=== PATIENT | female | born 1990 | race Caucasian/White ===

== ENCOUNTER → 2016-12-04 | Outpatient (REF) | payer BC | LOC: M SFHCLERA 17:18 | PROVIDERS: ATTEND Physician Assistant | DX: E04.9 Nontoxic goiter, unspecified (principal) ==

== ENCOUNTER → 2017-08-06 | Outpatient (REF) | payer BC | LOC: M SFHCLERA 12:16 | DX: J02.9 Acute pharyngitis, unspecified (principal) ==

== ENCOUNTER → 2017-08-11 | Outpatient (REF) | payer BC ==
[2017-08-11 18:20] LABS: CHLAMYDIA DNA AMPLIFICATION NEGATIVE (NEGATIVE); GC DNA AMPLIFICATION NEGATIVE (NEGATIVE)
== END ==
LOC: M SFHCLERA 11:11
DX: Z20.9 Contact with and (suspected) exposure to unspecified communicable disease (principal)
CPT/HCPCS: 87591

== ENCOUNTER → 2017-11-30 | Outpatient (REF) | payer BC | LOC: M SFHCLERA 19:27 | DX: Z12.4 Encounter for screening for malignant neoplasm of cervix (principal) | CPT/HCPCS: G0123 ==

== ENCOUNTER → 2018-03-15 | Outpatient (REF) | payer BC | LOC: M SFHCLERA 16:17 | DX: J02.9 Acute pharyngitis, unspecified (principal) ==

== ENCOUNTER → 2021-02-20 | Outpatient (CLI) | payer OTHER ==
[2021-02-20 11:07] LABS: ALBUMIN 3.3 GM/DL (3.2-5.2); ALT/SGPT 20 U/L (12-78); BILIRUBIN,TOTAL 0.5 MG/DL (0.2-1.0); BLOOD UREA NITROGEN 10 MG/DL (7-18); CALCIUM LEVEL 8.8 MG/DL (8.5-10.1); CARBON DIOXIDE LEVEL 26 MEQ/L (21-32); CHLORIDE LEVEL 109 MEQ/L (98-107); CREATININE FOR GFR 0.81 MG/DL (0.55-1.30); GLOMERULAR FILTRATION RATE > 60.0 (>60); GLUCOSE, FASTING 92 MG/DL (70-100); POTASSIUM SERUM 3.8 MEQ/L (3.5-5.1); SODIUM LEVEL 140 MEQ/L (136-145); TOTAL PROTEIN 6.7 GM/DL (6.4-8.2)
== END ==
LOC: M WUC 08:09
PROVIDERS: ATTEND Nurse Practitioner Family
DX: R76.0 Raised antibody titer (principal); Z83.3 Family history of diabetes mellitus

== ENCOUNTER 2023-06-22 17:03 | Outpatient (CLI) | payer OTHER ==
[~2023-06-22] VITALS: Ht 162.6 cm; Wt 114.5 kg
[2023-06-22 17:23] VITALS: BP 112/56
[2023-06-22] MEDS ORDERED: PRENTAB9 PO (17:36)
[2023-06-22] MEDS ORDERED: VALT1TAB PO (17:36)
[2023-06-22] MEDS ORDERED: OMEP10CASR PO (17:36)
[2023-06-22] MEDS ORDERED: TUMS500C PO (17:36)
[2023-06-22] MEDS ORDERED: HOME MED LIST COMPLETE! XX SCH (17:40)
== END 2023-06-22 19:58 | disposition home or self-care (01) ==
LOC: M LDO 17:03
PROVIDERS: ATTEND Obstetrics & Gynecology
DX: O36.8130 Decreased fetal movements, third trimester, not applicable or unspecified (principal); Z3A.40 40 weeks gestation of pregnancy; Z88.0 Allergy status to penicillin; Z88.1 Allergy status to other antibiotic agents; Z88.2 Allergy status to sulfonamides; Z88.8 Allergy status to other drugs, medicaments and biological substances; Z79.899 Other long term (current) drug therapy

== ENCOUNTER 2023-06-25 07:53 | Inpatient (IN) | payer OTHER ==
[2023-06-25] VITALS (16 sets, daily range): BP systolic 104–148; BP diastolic 47–75
[~2023-06-25] VITALS: Ht 162.6 cm; Wt 115.7 kg
[~2023-06-25 07:53] MED LIST: OMEP10CASR PO; PRENTAB9 PO; TUMS500C PO; VALT1TAB PO
[2023-06-25] MEDS ORDERED: HOME MED LIST COMPLETE! XX SCH (08:15)
[2023-06-25] MEDS ORDERED: LIDOCAINE 1% MDV 20ML VIAL INFIL PRN (09:00)
[2023-06-25] MEDS ORDERED: OXYTOCIN DRIP 30 UNITS in IV 1 EA IV PRN ×3 (09:00)
[2023-06-25] MEDS ORDERED: CARBOPROST TROMETHAMINE 250 MCG/ML AMP IM PRN (09:00)
[2023-06-25] MEDS ORDERED: OXYTOCIN INJ 10UNITS/ML 1ML VIAL IM PRN (09:00)
[2023-06-25] MEDS ORDERED: TRANEXAMIC ACID INJection 1,000 MG in NS 100 ML IV PRN (09:00)
[2023-06-25] MEDS ORDERED: METHYLERGONOVINE MALEATE 0.2MG/ML 1ML VIAL IM PRN (09:00)
[2023-06-25 09:34] LABS: HEMATOCRIT 32.5 % (36.0-47.0); HEMOGLOBIN 10.6 g/dl (12.0-15.5); MEAN CORPUSCULAR HEMOGLOBIN 26.8 pg (27.0-33.0); MEAN CORPUSCULAR HGB CONC 32.6 g/dl (32.0-36.5); MEAN CORPUSCULAR VOLUME 82.3 fl (80.0-96.0); PLATELET COUNT, AUTOMATED 275 10^3/uL (150-450); RED BLOOD COUNT 3.95 10^6/uL (4.00-5.40); WHITE BLOOD COUNT 11.9 10^3/uL (4.0-10.0)
[2023-06-25] MEDS: VANCOMYCIN HCL 1,000 MG, VIAL MATE ADAPTER 1 EACH in D5W 250 ML IV SCH ×2 (09:48→13:01)
[2023-06-25] MEDS: LACTATED RINGER'S 1000 ML IV STA (09:48)
[2023-06-25] MEDS: valACYclovir HCL 500 MG TAB PO SCH (09:56)
[2023-06-25] MEDS: miSOPROStol 50MCG 1/2 TABLET PO SCH (13:00)
[2023-06-25] MEDS: LR 1,000 ML IV SCH (13:01)
[2023-06-25] MEDS ORDERED: VANCOMYCIN HCL 2,000 MG, VIAL MATE ADAPTER 1 EACH in NS 250 ML IV SCH (16:00)
[2023-06-25] MEDS ORDERED: diphenhydrAMINE 50MG/ML VIAL IV PRN (17:50)
[2023-06-25] MEDS ORDERED: ONDANSETRON 4MG 2ML VIAL IV PRN (17:50)
[2023-06-25] MEDS ORDERED: LR 500 ML IV PRN (17:50)
[2023-06-25] MEDS ORDERED: NALOXONE INJ 0.4MG/1ML VIAL IV PRN (17:50)
[2023-06-25] MEDS ORDERED: EPIDURAL/PCA KEYS XX PRN (17:50)
[2023-06-25] MEDS: FENTANYL/ROPIVACAINE/NACL BAG 100 ML EPIDURAL SCH (18:25)
[2023-06-25] MEDS: ePHEDrine SULFATE 25 MG/5 ML(5MG/ML) SYRINGE IVP PRN (19:32)
[2023-06-25] MEDS ORDERED: LR 1,000 ML IV SCH (21:05)
[2023-06-25] MEDS: OXYTOCIN DRIP 30 UNITS in IV 1 EA IV SCH (21:11)
[2023-06-25] MEDS: D5W/LR 500 ML IV ONE (23:55)
[2023-06-26] VITALS (8 sets, daily range): BP systolic 101–124; BP diastolic 55–73; O2SAT 96–98
[2023-06-26] MEDS: FAMOTIDINE 20MG/2ML VIAL IVP ONE (00:22)
[2023-06-26] MEDS ORDERED: MORPHINE PRES-FREE INJ 10 MG/10 ML VIAL As Ordered ONE (02:50)
[2023-06-26] MEDS ORDERED: LIDOCAINE 2% W/EPINEPHRINE 20ML VIAL **PRES FREE As Ordered ONE (02:51)
[2023-06-26] MEDS ORDERED: OXYTOCIN 30UNITS IN 0.9% NaCl 500ML IV BAG As Ordered ONE (02:51)
[2023-06-26] MEDS: CLINDAMYCIN 900 MG in IV 1 EA IV ONE (03:00)
[2023-06-26] MEDS ORDERED: ONDANSETRON 4MG 2ML VIAL As Ordered ONE (03:20)
[2023-06-26] MEDS ORDERED: METOCLOPRAMIDE INJ 10MG/2ML VIAL As Ordered ONE (03:26)
[2023-06-26] MEDS ORDERED: PHENYLephrine 500MCG 5ML (100MCG/ML) SYRINGE As Ordered ONE (03:36)
[2023-06-26] MEDS ORDERED: KETOROLAC 60MG 2ML VIAL As Ordered ONE (03:41)
[2023-06-26 03:49] LABS: CORD GAS ABE A -4.4; CORD GAS ABE V -2.8; CORD GAS HCO3 A 21.7 MMOL/L; CORD GAS HCO3 V 22.3 MMOL/L; CORD GAS O2 SAT A 28.7 %; CORD GAS O2 SAT V 64.1 %; CORD GAS PCO2 A 43.6 mmHg; CORD GAS PCO2 V 39.9 mmHg; CORD GAS PH A 7.315 UNITS; CORD GAS PH V 7.365 UNITS; CORD GAS PO2 A 14.6 mmHg; CORD GAS PO2 V 25.8 mmHg; CORD GAS SBC A 19.3 MMOL/L; CORD GAS SBC V 21.3 MMOL/L; CORD GAS TCO2 V 23.5 MMOL/L
[2023-06-26] MEDS ORDERED: GENTAMICIN 400 MG in D5W 100 ML IV ONE (04:00)
[2023-06-26] MEDS ORDERED: ACETAMINOPHEN 1000MG 100ML IV BAG As Ordered ONE (04:01)
[2023-06-26] MEDS: OXYTOCIN DRIP 30 UNITS in IV 1 EA IV SCH (04:20)
[2023-06-26] MEDS ORDERED: SIMETHICONE 80MG CHEW TAB PO PRN (04:20)
[2023-06-26] MEDS ORDERED: MOM 30ML SUSPENSION UDC PO PRN (04:20)
[2023-06-26] MEDS ORDERED: RHOGAM 300MCG (1500IU) INJ IM SCH (04:20)
[2023-06-26] MEDS ORDERED: METHYLERGONOVINE MALEATE 0.2 MG TAB PO PRN (04:20)
[2023-06-26] MEDS ORDERED: ONDANSETRON 4MG 2ML VIAL IV PRN ×2 (04:20→04:25)
[2023-06-26] MEDS: LR 1,000 ML IV SCH ×2 (04:20→04:25)
[2023-06-26] MEDS ORDERED: ANUSOL HC CREAM 30GM TOP PRN (04:20)
[2023-06-26] MEDS ORDERED: METOCLOPRAMIDE INJ 10MG/2ML VIAL IV PRN ×2 (04:20→04:25)
[2023-06-26] MEDS ORDERED: GABAPENTIN 300 MG CAP PO PRN (04:20)
[2023-06-26] MEDS ORDERED: oxyCODONE 5MG TAB PO PRN (04:25)
[2023-06-26] MEDS ORDERED: MEPERIDINE 25 MG/ML 1ML VIAL IV PRN (04:25)
[2023-06-26] MEDS ORDERED: NALOXONE INJ 0.4MG/1ML VIAL IV PRN ×2 (04:25)
[2023-06-26] MEDS ORDERED: HYDROMORPHONE HCL 0.5 MG/ 0.5 ML SYRINGE IV PRN (04:25)
[2023-06-26] MEDS ORDERED: **NOTE PATIENT COMMENT** MISC XX SCH (04:25)
[2023-06-26] MEDS ORDERED: fentaNYL 100 MCG/2 ML INJECTION IV PRN (04:25)
[2023-06-26] MEDS: SLF 3 ML SYR IV SCH (04:25)
[2023-06-26] MEDS ORDERED: PRENATAL VITAMINS CHEWABLE TABLET PO SCH (09:00)
[2023-06-26] MEDS: KETOROLAC 30 MG/ML 1ML VIAL IV SCH (10:17)
[2023-06-26] MEDS: ACETAMINOPHEN 500 MG TAB PO SCH (10:18)
[2023-06-26] MEDS: PRENATAL VITAMINS CHEWABLE TABLET PO SCH (10:18)
[2023-06-26] MEDS: DOCUSATE SODIUM 100MG CAPSULE PO SCH (10:18)
[2023-06-26] MEDS: valACYclovir HCL 500 MG TAB PO SCH (11:08)
[2023-06-26] MEDS: diphenhydrAMINE 50MG/ML VIAL IV PRN (14:46)
[2023-06-27] VITALS (7 sets, daily range): BP systolic 111–122; BP diastolic 57–65; TEMP 98.1; O2SAT 96–100
[2023-06-27] MEDS: IBUPROFEN 800 MG TAB PO SCH (05:12)
[2023-06-27 06:52] LABS: HEMATOCRIT 25.4 % (36.0-47.0); MEAN CORPUSCULAR HEMOGLOBIN 26.6 pg (27.0-33.0); MEAN CORPUSCULAR HGB CONC 31.5 g/dl (32.0-36.5); MEAN CORPUSCULAR VOLUME 84.4 fl (80.0-96.0); PLATELET COUNT, AUTOMATED 205 10^3/uL (150-450); RED BLOOD COUNT 3.01 10^6/uL (4.00-5.40); WHITE BLOOD COUNT 15.2 10^3/uL (4.0-10.0)
[2023-06-27] MEDS: oxyCODONE 5MG TAB PO PRN ×2 (18:49→18:50)
[2023-06-28 02:00] VITALS: BP_SYST 113; BP_SYST 137; BP_DIAS 67; BP_DIAS 91; O2SAT 100; O2SAT 96
[2023-06-28 06:00] VITALS: BP 115/58; O2SAT 98
[2023-06-28] MEDS ORDERED: GABA-282 PO (07:22)
[2023-06-28] MEDS ORDERED: ACET-683 PO (07:22)
[2023-06-28] MEDS ORDERED: OXYC-517 PO (07:22)
[2023-06-28] MEDS ORDERED: COLA100C5 PO (07:22)
[2023-06-28] MEDS ORDERED: IBUP80TA PO (07:22)
[2023-06-28 08:05] VITALS: BP 115/58; TEMP 97.2; O2SAT 98
[2023-06-28] MEDS ORDERED: MEASLES,MUMPS,RUBELLA VACCINE INJ (MMR-II) SC.IMMUN ONE (09:00)
== END 2023-06-28 12:57 | disposition home or self-care (01) | DRG 773 ==
LOC: M LDO 07:53 → M LDI 08:46 → M OBS 06-26 06:14
PROVIDERS: ADMIT Obstetrics & Gynecology; ATTEND Obstetrics & Gynecology
PROC: 10D00Z1 Extraction of Products of Conception, Low, Open Approach (ICD-10-PCS; principal; 2023-06-26 03:11)
DX: O42.02 Full-term premature rupture of membranes, onset of labor within 24 hours of rupture (principal); O99.824 Streptococcus B carrier state complicating childbirth; Z37.0 Single live birth; Z3A.40 40 weeks gestation of pregnancy; O76 Abnormality in fetal heart rate and rhythm complicating labor and delivery